=== PATIENT | female | born 1995 | race Caucasian/White ===

== ENCOUNTER 2022-10-16 14:18 | Emergency (ER) | payer OTHER ==
[~2022-10-16] VITALS: Ht 170.2 cm; Wt 61.2 kg
--- NOTE | 2022-10-16 14:47 | NUR ---
BIB rotary adjuster from home for OD, patient is awake alert and oriented x4 with family at bedside. Informed of plan of care, awaiting ER provider exam, placed on monitor, will continue to monitor. No s/s of any distress noted.
--- NOTE | 2022-10-16 15:49 | NUR ---
Requested and given a meal with apple juice. No voiced c/o at this time.
[2022-10-16] MEDS ORDERED: NALO4SPR BNOSTRILS (16:20)
--- NOTE | 2022-10-16 16:20 | NUR ---
MD was at bedside talking with patient. Okay for discharge home with family. ACI given remains stable for discharge home.
[2022-10-16 16:25] VITALS: BP 128/72; O2SAT 98
== END 2022-10-16 16:26 | disposition home or self-care (01) ==
LOC: ER 15:01
DX: Z53.21 Procedure and treatment not carried out due to patient leaving prior to being seen by health care provider (principal)
CPT/HCPCS: A4663